=== PATIENT | female | born 1990 | race Two or more races ===

== ENCOUNTER 2021-12-05 14:12 | Outpatient (CLI) | payer SELFPAY ==
[2021-12-05] VITALS (17 sets, daily range): BP systolic 124–174; BP diastolic 83–130
[~2021-12-05] VITALS: Ht 160 cm; Wt 56.0 kg
[2021-12-05] MEDS ORDERED: ONDANSETRON 4MG 2ML VIAL IV ONE (14:40)
[2021-12-05] MEDS ORDERED: LR 1,000 ML IV ONE (14:40)
[2021-12-05 15:16] LABS: HEMATOCRIT 38.6 % (36.0-47.0); MEAN CORPUSCULAR HEMOGLOBIN 29.7 pg (27.0-33.0); MEAN CORPUSCULAR HGB CONC 33.7 g/dl (32.0-36.5); MEAN CORPUSCULAR VOLUME 88.1 fl (80.0-96.0); PLATELET COUNT, AUTOMATED 208 10^3/uL (150-450); RED BLOOD COUNT 4.38 10^6/uL (4.00-5.40); WHITE BLOOD COUNT 6.1 10^3/uL (4.0-10.0)
[2021-12-05] MEDS ORDERED: LABETALOL 100MG/20ML VIAL IV STA ×3 (15:23→16:56)
[2021-12-05 15:43] LABS: ALBUMIN 1.7 GM/DL (3.2-5.2); ALT/SGPT 51 U/L (12-78); BLOOD UREA NITROGEN 11 MG/DL (7-18); CALCIUM LEVEL 7.8 MG/DL (8.5-10.1); CARBON DIOXIDE LEVEL 27 MEQ/L (21-32); CHLORIDE LEVEL 107 MEQ/L (98-107); CREATININE FOR GFR 0.61 MG/DL (0.55-1.30); GLOMERULAR FILTRATION RATE > 60.0 (>60); GLUCOSE, FASTING 72 MG/DL (70-100); LDH LACTATE DEHYDROGENASE 264 U/L (84-246); POTASSIUM SERUM 4.3 MEQ/L (3.5-5.1); SODIUM LEVEL 139 MEQ/L (136-145); TOTAL PROTEIN 5.3 GM/DL (6.4-8.2); URIC ACID 4.8 MG/DL (2.6-6.0)
[2021-12-05 15:46] LABS: BILIRUBIN,TOTAL < 0.1 MG/DL (0.2-1.0)
[2021-12-05] MEDS ORDERED: PRENTAB9 PO (16:11)
[2021-12-05] MEDS ORDERED: BETAMETHASONE SOLUSPAN 6MG/ML 5ML VIAL (J0702 PER 3MG) IM SCH (16:30)
[2021-12-05 16:31] LABS: CREATININE,RANDOM URINE 77.6 MG/DL; TOTAL PROTEIN,RANDOM URINE 642.6 MG/DL (0.0-12.0)
[2021-12-05] MEDS ORDERED: MAGNESIUM SULFATE 4% INJ 20GM/500ML (40MG/ML) As Ordered ONE (16:41)
[2021-12-05] MEDS ORDERED: MAGNESIUM SULFATE 4% INJ 20GM/500ML (40MG/ML) IV ONE (17:00)
[2021-12-05] MEDS ORDERED: MAG Sulf (OBGYN) 20GM/500ML 20,000 MG in IV 1 EA IV SCH (17:30)
== END 2021-12-05 18:45 | disposition short-term general hospital (02) ==
LOC: EDBD 14:12 → M LDO 14:12
PROVIDERS: ATTEND Obstetrics & Gynecology
DX: O21.2 Late vomiting of pregnancy (principal); O41.02X0 Oligohydramnios, second trimester, not applicable or unspecified; Z3A.22 22 weeks gestation of pregnancy; O35.8XX0 Maternal care for other (suspected) fetal abnormality and damage, not applicable or unspecified; O26.892 Other specified pregnancy related conditions, second trimester; R19.7 Diarrhea, unspecified
CPT/HCPCS: 36415; 59025; 76811; 76819; 76820; 76821; 80053; 82247; 82565; 82570; 83615; 84156; 84450; 84460; 84550; 85027; 87635; 96360; 96361; 96372; G0463; J0702; J2405; J3475

== ENCOUNTER 2021-12-17 18:58 | Inpatient (IN) | payer OTHER, SELFPAY ==
[~2021-12-17] VITALS: Ht 157.5 cm; Wt 53.2 kg
[~2021-12-17 18:58] MED LIST: PRENTAB9 PO
[2021-12-17] MEDS ORDERED: IBUP200C25 PO (19:19)
[2021-12-17] MEDS ORDERED: ACET32TAB PO (19:19)
[2021-12-17 20:19] LABS: BASO # 0.1 10^3/uL (0.0-0.2); BASO % 0.2 % (0.0-1.0); HEMATOCRIT 36.2 % (36.0-47.0); HEMOGLOBIN 12.2 g/dl (12.0-15.5); LYMPH # 0.8 10^3/uL (1.5-5.0); LYMPH % 2.3 % (24.0-44.0); MEAN CORPUSCULAR HEMOGLOBIN 30.3 pg (27.0-33.0); MEAN CORPUSCULAR HGB CONC 33.7 g/dl (32.0-36.5); MEAN CORPUSCULAR VOLUME 89.8 fl (80.0-96.0); MONO % 6.7 % (2.0-8.0); NEUTROPHILS % 89.4 % (36.0-66.0); PLATELET COUNT, AUTOMATED 301 10^3/uL (150-450); RED BLOOD COUNT 4.03 10^6/uL (4.00-5.40)
[2021-12-17 20:20] LABS: MONO # 2.2 10^3/uL (0.0-0.8); WHITE BLOOD COUNT 33.5 10^3/uL (4.0-10.0)
[2021-12-17] MEDS ORDERED: NS 1,600 ML in IV 1 EA IV ONE (20:45)
[2021-12-17] MEDS ORDERED: ACETAMINOPHEN TAB 650MG DOSE (2X325MG) PO ONE (20:45)
[2021-12-17 21:29] LABS: ALBUMIN 2.5 GM/DL (3.2-5.2); ALT/SGPT 145 U/L (12-78); BILIRUBIN,TOTAL 0.5 MG/DL (0.2-1.0); BLOOD UREA NITROGEN 9 MG/DL (7-18); CALCIUM LEVEL 8.3 MG/DL (8.5-10.1); CARBON DIOXIDE LEVEL 24 MEQ/L (21-32); CHLORIDE LEVEL 99 MEQ/L (98-107); CREATININE FOR GFR 0.79 MG/DL (0.55-1.30); GLOMERULAR FILTRATION RATE > 60.0 (>60); GLUCOSE, FASTING 117 MG/DL (70-100); POTASSIUM SERUM 4.4 MEQ/L (3.5-5.1); SODIUM LEVEL 130 MEQ/L (136-145)
[2021-12-17 21:30] LABS: TOTAL PROTEIN 6.8 GM/DL (6.4-8.2)
[2021-12-17] MEDS ORDERED: cefTRIAXone SOD 2 GM in D5W MINI-BAG PLUS 50 ML IV ONE (22:05)
[2021-12-17] MEDS ORDERED: ISOVUE-370 76% 100ML VIAL As Ordered ONE (22:12)
[2021-12-18] VITALS (9 sets, daily range): BP systolic 90–140; BP diastolic 55–89
[2021-12-18] MEDS: LR 1,000 ML IV SCH ×3 (00:50→15:13)
[2021-12-18] MEDS ORDERED: [UNRECOGNIZED DRUG - CODE] PO (01:21)
[2021-12-18] MEDS ORDERED: SIME80CH5 PO (01:21)
[2021-12-18] MEDS ORDERED: IBUP1TAB6 PO (01:21)
[2021-12-18] MEDS ORDERED: OXYC-517 PO (01:21)
[2021-12-18] MEDS ORDERED: NIFE30TA50 PO (01:21)
[2021-12-18] MEDS ORDERED: ACET-907 PO (01:21)
[2021-12-18] MEDS ORDERED: HOME MED LIST COMPLETE! XX SCH (01:25)
[2021-12-18] MEDS: ACETAMINOPHEN 500 MG TAB PO SCH ×4 (02:43→20:46)
[2021-12-18] MEDS ORDERED: diphenhydrAMINE 25MG CAP PO ONE ×2 (04:35→22:55)
[2021-12-18] MEDS ORDERED: METOCLOPRAMIDE 10MG TAB PO ONE ×2 (04:35→22:55)
[2021-12-18] MEDS ORDERED: LR 1,000 ML IV ONE (05:15)
[2021-12-18] MEDS: IBUPROFEN 600MG TAB PO SCH ×3 (05:30→17:49)
[2021-12-18 07:54] LABS: HEMATOCRIT 31.7 % (36.0-47.0); HEMOGLOBIN 10.4 g/dl (12.0-15.5); MEAN CORPUSCULAR HEMOGLOBIN 29.6 pg (27.0-33.0); MEAN CORPUSCULAR HGB CONC 32.8 g/dl (32.0-36.5); MEAN CORPUSCULAR VOLUME 90.3 fl (80.0-96.0); PLATELET COUNT, AUTOMATED 288 10^3/uL (150-450); RED BLOOD COUNT 3.51 10^6/uL (4.00-5.40)
[2021-12-18 08:47] LABS: ALBUMIN 1.8 GM/DL (3.2-5.2); ALT/SGPT 95 U/L (12-78); BILIRUBIN,TOTAL 0.3 MG/DL (0.2-1.0); BLOOD UREA NITROGEN 6 MG/DL (7-18); CALCIUM LEVEL 8.2 MG/DL (8.5-10.1); CARBON DIOXIDE LEVEL 20 MEQ/L (21-32); CHLORIDE LEVEL 107 MEQ/L (98-107); CREATININE FOR GFR 0.61 MG/DL (0.55-1.30); GLOMERULAR FILTRATION RATE > 60.0 (>60); GLUCOSE, FASTING 86 MG/DL (70-100); POTASSIUM SERUM 4.2 MEQ/L (3.5-5.1); SODIUM LEVEL 136 MEQ/L (136-145); TOTAL PROTEIN 5.2 GM/DL (6.4-8.2)
[2021-12-18] MEDS: NIFEdipine 30 MG XL TAB PO SCH (09:00)
[2021-12-18] MEDS ORDERED: ONDANSETRON 4MG 2ML VIAL IV PRN (18:10)
[2021-12-18] MEDS ORDERED: cefTRIAXone SOD 1 GM in D5W MINI-BAG PLUS 50 ML IV SCH (20:45)
[2021-12-19] MEDS: IBUPROFEN 600MG TAB PO SCH ×4 (00:25→16:47)
[2021-12-19] MEDS: ACETAMINOPHEN 500 MG TAB PO SCH (02:53)
[2021-12-19 04:00] VITALS: BP 121/72
[2021-12-19] MEDS: PERCOCET 5MG/325MG TAB PO PRN ×2 (04:23→11:47)
[2021-12-19] MEDS: LR 1,000 ML IV SCH ×3 (06:03→20:52)
[2021-12-19 07:33] LABS: BASO # 0.1 10^3/uL (0.0-0.2); BASO % 0.2 % (0.0-1.0); EOS # 0.1 10^3/uL (0.0-0.5); EOS % 0.4 % (0.0-3.0); HEMATOCRIT 32.9 % (36.0-47.0); HEMOGLOBIN 11.1 g/dl (12.0-15.5); LYMPH # 1.3 10^3/uL (1.5-5.0); LYMPH % 5.8 % (24.0-44.0); MEAN CORPUSCULAR HEMOGLOBIN 30.1 pg (27.0-33.0); MEAN CORPUSCULAR HGB CONC 33.7 g/dl (32.0-36.5); MEAN CORPUSCULAR VOLUME 89.2 fl (80.0-96.0); MONO # 1.5 10^3/uL (0.0-0.8); MONO % 6.7 % (2.0-8.0); NEUTROPHILS # 18.8 10^3/uL (1.5-8.5); NEUTROPHILS % 85.4 % (36.0-66.0); PLATELET COUNT, AUTOMATED 337 10^3/uL (150-450); RED BLOOD COUNT 3.69 10^6/uL (4.00-5.40); WHITE BLOOD COUNT 22.1 10^3/uL (4.0-10.0)
[2021-12-19 08:00] VITALS: BP 98/70
[2021-12-19] MEDS: NIFEdipine 30 MG XL TAB PO SCH (08:19)
[2021-12-19] MEDS ORDERED: diphenhydrAMINE 50MG/ML VIAL (J1200) IV SCH (08:30)
[2021-12-19] MEDS: MEROPENEM INJ 1 GM in IV 1 EA IV SCH ×2 (09:16→16:47)
[2021-12-19 11:53] VITALS: BP 117/77
[2021-12-19] MEDS: diphenhydrAMINE 50MG/ML VIAL (J1200) IV SCH (16:43)
[2021-12-19 16:51] VITALS: BP 134/79
[2021-12-19] MEDS: ACETAMINOPHEN TAB 650MG DOSE (2X325MG) PO PRN ×2 (17:57→22:02)
[2021-12-19] MEDS: oxyCODONE 5MG TAB PO PRN (18:07)
[2021-12-19] MEDS ORDERED: oxyCODONE 5MG TAB PO ONE (19:10)
[2021-12-19] MEDS ORDERED: oxyCODONE 5MG TAB PO PRN (19:10)
[2021-12-19 20:03] VITALS: BP 124/81
[2021-12-19] MEDS: ENOXAPARIN 40MG/0.4ML SYRINGE (J1650 PER 10MG) SC SCH (20:53)
[2021-12-20] VITALS (7 sets, daily range): BP systolic 112–152; BP diastolic 76–85
[2021-12-20] MEDS: IBUPROFEN 600MG TAB PO SCH ×5 (00:15→23:53)
[2021-12-20] MEDS: diphenhydrAMINE 50MG/ML VIAL (J1200) IV SCH ×3 (00:15→16:15)
[2021-12-20] MEDS: MEROPENEM INJ 1 GM in IV 1 EA IV SCH ×3 (01:10→16:16)
[2021-12-20] MEDS: ACETAMINOPHEN TAB 650MG DOSE (2X325MG) PO PRN ×4 (02:28→20:28)
[2021-12-20] MEDS: LR 1,000 ML IV SCH ×3 (04:30→16:16)
[2021-12-20] MEDS: NIFEdipine 30 MG XL TAB PO SCH (08:17)
[2021-12-20 09:07] LABS: BASO % 0.5 % (0.0-1.0); EOS # 0.1 10^3/uL (0.0-0.5); EOS % 1.3 % (0.0-3.0); HEMATOCRIT 30.5 % (36.0-47.0); HEMOGLOBIN 10.4 g/dl (12.0-15.5); LYMPH % 11.6 % (24.0-44.0); MEAN CORPUSCULAR HEMOGLOBIN 29.9 pg (27.0-33.0); MEAN CORPUSCULAR HGB CONC 34.1 g/dl (32.0-36.5); MEAN CORPUSCULAR VOLUME 87.6 fl (80.0-96.0); MONO # 0.8 10^3/uL (0.0-0.8); MONO % 8.9 % (2.0-8.0); NEUTROPHILS # 6.7 10^3/uL (1.5-8.5); NEUTROPHILS % 76.9 % (36.0-66.0); PLATELET COUNT, AUTOMATED 345 10^3/uL (150-450); RED BLOOD COUNT 3.48 10^6/uL (4.00-5.40); WHITE BLOOD COUNT 8.7 10^3/uL (4.0-10.0)
[2021-12-20] MEDS: ENOXAPARIN 40MG/0.4ML SYRINGE (J1650 PER 10MG) SC SCH (20:29)
[2021-12-20] MEDS: oxyCODONE 5MG TAB PO PRN (22:49)
[2021-12-21] MEDS: diphenhydrAMINE 50MG/ML VIAL (J1200) IV SCH ×3 (00:45→16:04)
[2021-12-21] MEDS: ACETAMINOPHEN TAB 650MG DOSE (2X325MG) PO PRN ×3 (00:46→17:21)
[2021-12-21] MEDS ORDERED: oxyCODONE 5MG TAB PO ONE (01:15)
[2021-12-21] MEDS: MEROPENEM INJ 1 GM in IV 1 EA IV SCH ×3 (01:24→17:04)
[2021-12-21] MEDS: LR 1,000 ML IV SCH (01:28)
[2021-12-21 04:30] VITALS: BP 122/79
[2021-12-21] MEDS: IBUPROFEN 600MG TAB PO SCH ×4 (06:12→22:34)
[2021-12-21 06:30] LABS: BASO % 0.7 % (0.0-1.0); EOS # 0.1 10^3/uL (0.0-0.5); EOS % 2.2 % (0.0-3.0); HEMATOCRIT 29.7 % (36.0-47.0); HEMOGLOBIN 10.1 g/dl (12.0-15.5); LYMPH # 1.2 10^3/uL (1.5-5.0); LYMPH % 20.5 % (24.0-44.0); MEAN CORPUSCULAR HEMOGLOBIN 29.6 pg (27.0-33.0); MEAN CORPUSCULAR VOLUME 87.1 fl (80.0-96.0); MONO # 0.7 10^3/uL (0.0-0.8); MONO % 12.4 % (2.0-8.0); NEUTROPHILS # 3.7 10^3/uL (1.5-8.5); NEUTROPHILS % 63.5 % (36.0-66.0); PLATELET COUNT, AUTOMATED 414 10^3/uL (150-450); RED BLOOD COUNT 3.41 10^6/uL (4.00-5.40); WHITE BLOOD COUNT 5.8 10^3/uL (4.0-10.0)
[2021-12-21] MEDS ORDERED: MIRALAX *UNIT DOSE* 17GM PACKET PO PRN (07:45)
[2021-12-21] MEDS ORDERED: SENNA 8.6 MG TAB (SENOKOT) PO PRN (07:45)
[2021-12-21 08:00] VITALS: BP 98/69
[2021-12-21] MEDS: NIFEdipine 30 MG XL TAB PO SCH (08:40)
[2021-12-21] MEDS: DOCUSATE SODIUM 100MG CAPSULE PO SCH ×2 (08:44→20:04)
[2021-12-21 12:00] VITALS: BP 132/94
[2021-12-21 16:00] VITALS: BP 129/90
[2021-12-21] MEDS: ENOXAPARIN 40MG/0.4ML SYRINGE (J1650 PER 10MG) SC SCH (20:04)
[2021-12-22] MEDS: diphenhydrAMINE 50MG/ML VIAL (J1200) IV SCH ×3 (00:32→16:35)
[2021-12-22] MEDS: MEROPENEM INJ 1 GM in IV 1 EA IV SCH ×3 (01:05→17:17)
[2021-12-22 04:00] VITALS: BP 152/86
[2021-12-22] MEDS: IBUPROFEN 600MG TAB PO SCH ×3 (05:06→17:19)
[2021-12-22 06:22] LABS: BASO % 0.6 % (0.0-1.0); EOS # 0.1 10^3/uL (0.0-0.5); EOS % 2.5 % (0.0-3.0); HEMATOCRIT 31.1 % (36.0-47.0); HEMOGLOBIN 10.7 g/dl (12.0-15.5); LYMPH # 1.5 10^3/uL (1.5-5.0); LYMPH % 29.5 % (24.0-44.0); MEAN CORPUSCULAR HEMOGLOBIN 29.6 pg (27.0-33.0); MEAN CORPUSCULAR HGB CONC 34.4 g/dl (32.0-36.5); MEAN CORPUSCULAR VOLUME 86.1 fl (80.0-96.0); MONO # 0.9 10^3/uL (0.0-0.8); MONO % 17.5 % (2.0-8.0); NEUTROPHILS # 2.5 10^3/uL (1.5-8.5); NEUTROPHILS % 48.9 % (36.0-66.0); PLATELET COUNT, AUTOMATED 440 10^3/uL (150-450); RED BLOOD COUNT 3.61 10^6/uL (4.00-5.40); WHITE BLOOD COUNT 5.2 10^3/uL (4.0-10.0)
[2021-12-22 08:00] VITALS: BP 130/86
[2021-12-22] MEDS: PRENATAL VITAMINS CHEWABLE TABLET PO SCH (08:44)
[2021-12-22] MEDS: DOCUSATE SODIUM 100MG CAPSULE PO SCH ×2 (08:45→19:37)
[2021-12-22] MEDS: NIFEdipine 30 MG XL TAB PO SCH (08:46)
[2021-12-22 12:00] VITALS: BP 136/103
[2021-12-22 12:15] VITALS: BP 135/90
[2021-12-22 16:00] VITALS: BP 133/90
[2021-12-22 20:00] VITALS: BP 124/82
[2021-12-22] MEDS: ENOXAPARIN 40MG/0.4ML SYRINGE (J1650 PER 10MG) SC SCH (20:10)
[2021-12-23] VITALS: BP 125/81
[2021-12-23] MEDS: ACETAMINOPHEN TAB 650MG DOSE (2X325MG) PO PRN ×2 (01:50→15:40)
[2021-12-23] MEDS: IBUPROFEN 600MG TAB PO PRN ×2 (02:53→16:31)
[2021-12-23 07:02] LABS: BASO % 0.5 % (0.0-1.0); EOS # 0.1 10^3/uL (0.0-0.5); EOS % 2.1 % (0.0-3.0); HEMATOCRIT 31.9 % (36.0-47.0); HEMOGLOBIN 10.5 g/dl (12.0-15.5); LYMPH # 1.5 10^3/uL (1.5-5.0); LYMPH % 24.2 % (24.0-44.0); MEAN CORPUSCULAR HGB CONC 32.9 g/dl (32.0-36.5); MEAN CORPUSCULAR VOLUME 88.1 fl (80.0-96.0); MONO # 0.7 10^3/uL (0.0-0.8); MONO % 11.3 % (2.0-8.0); NEUTROPHILS # 3.8 10^3/uL (1.5-8.5); NEUTROPHILS % 61.1 % (36.0-66.0); PLATELET COUNT, AUTOMATED 503 10^3/uL (150-450); RED BLOOD COUNT 3.62 10^6/uL (4.00-5.40); WHITE BLOOD COUNT 6.2 10^3/uL (4.0-10.0)
[2021-12-23 07:34] LABS: ALBUMIN 1.8 GM/DL (3.2-5.2); ALT/SGPT 44 U/L (12-78); BILIRUBIN,TOTAL 0.2 MG/DL (0.2-1.0); BLOOD UREA NITROGEN 7 MG/DL (7-18); CALCIUM LEVEL 8.2 MG/DL (8.5-10.1); CARBON DIOXIDE LEVEL 27 MEQ/L (21-32); CHLORIDE LEVEL 106 MEQ/L (98-107); CREATININE FOR GFR 0.52 MG/DL (0.55-1.30); GLOMERULAR FILTRATION RATE > 60.0 (>60); GLUCOSE, FASTING 89 MG/DL (70-100); POTASSIUM SERUM 4.6 MEQ/L (3.5-5.1); SODIUM LEVEL 138 MEQ/L (136-145); TOTAL PROTEIN 5.5 GM/DL (6.4-8.2)
[2021-12-23] MEDS ORDERED: ISOVUE-370 76% 100ML VIAL As Ordered ONE (07:53)
[2021-12-23 08:00] VITALS: BP 122/82
[2021-12-23] MEDS: ERTAPENEM SODIUM 1 GM in NS MINI-BAG PLUS 50 ML IV SCH (09:13)
[2021-12-23 09:16] VITALS: BP 122/82
[2021-12-23] MEDS: PRENATAL VITAMINS CHEWABLE TABLET PO SCH (09:28)
[2021-12-23] MEDS: NIFEdipine 30 MG XL TAB PO SCH (09:31)
[2021-12-23 12:00] VITALS: BP 134/76
[2021-12-23] MEDS ORDERED: traMADol 50 MG TAB PO ONE (13:00)
[2021-12-23 16:00] VITALS: BP 124/93
[2021-12-23] MEDS: ENOXAPARIN 40MG/0.4ML SYRINGE (J1650 PER 10MG) SC SCH (20:06)
[2021-12-23 20:22] VITALS: BP 131/82
[2021-12-24] VITALS (7 sets, daily range): BP systolic 117–141; BP diastolic 79–95
[2021-12-24] MEDS: IBUPROFEN 600MG TAB PO PRN ×2 (04:14→21:08)
[2021-12-24 05:50] LABS: HEMATOCRIT 31.4 % (36.0-47.0); HEMOGLOBIN 10.5 g/dl (12.0-15.5); MEAN CORPUSCULAR HEMOGLOBIN 29.5 pg (27.0-33.0); MEAN CORPUSCULAR HGB CONC 33.4 g/dl (32.0-36.5); MEAN CORPUSCULAR VOLUME 88.2 fl (80.0-96.0); PLATELET COUNT, AUTOMATED 526 10^3/uL (150-450); RED BLOOD COUNT 3.56 10^6/uL (4.00-5.40); WHITE BLOOD COUNT 8.4 10^3/uL (4.0-10.0)
[2021-12-24 06:21] LABS: ALT/SGPT 41 U/L (12-78); BILIRUBIN,TOTAL 0.2 MG/DL (0.2-1.0); BLOOD UREA NITROGEN 6 MG/DL (7-18); CALCIUM LEVEL 8.4 MG/DL (8.5-10.1); CARBON DIOXIDE LEVEL 23 MEQ/L (21-32); CHLORIDE LEVEL 104 MEQ/L (98-107); CREATININE FOR GFR 0.55 MG/DL (0.55-1.30); GLOMERULAR FILTRATION RATE > 60.0 (>60); GLUCOSE, FASTING 120 MG/DL (70-100); POTASSIUM SERUM 4.2 MEQ/L (3.5-5.1); SODIUM LEVEL 135 MEQ/L (136-145); TOTAL PROTEIN 6.2 GM/DL (6.4-8.2)
[2021-12-24] MEDS: ERTAPENEM SODIUM 1 GM in NS MINI-BAG PLUS 50 ML IV SCH (08:17)
[2021-12-24] MEDS: NIFEdipine 30 MG XL TAB PO SCH (09:00)
[2021-12-24] MEDS: PRENATAL VITAMINS CHEWABLE TABLET PO SCH (09:16)
[2021-12-24] MEDS: ACETAMINOPHEN TAB 650MG DOSE (2X325MG) PO PRN (16:08)
[2021-12-24 16:57] LABS: HEPATITIS B SURFACE ANTIGEN NEGATIVE (NEGATIVE)
[2021-12-24] MEDS: ENOXAPARIN 40MG/0.4ML SYRINGE (J1650 PER 10MG) SC SCH (20:52)
[2021-12-25 00:24] VITALS: BP 119/85
[2021-12-25 04:00] VITALS: BP 120/81
[2021-12-25] MEDS: IBUPROFEN 600MG TAB PO PRN (05:13)
[2021-12-25 08:00] VITALS: BP 119/74
[2021-12-25] MEDS: NIFEdipine 30 MG XL TAB PO SCH (08:21)
[2021-12-25] MEDS ORDERED: LIDOCAINE 1% MDV 20ML VIAL As Ordered ONE (08:23)
[2021-12-25] MEDS: ERTAPENEM SODIUM 1 GM in NS MINI-BAG PLUS 50 ML IV SCH (09:18)
[2021-12-25] MEDS: PRENATAL VITAMINS CHEWABLE TABLET PO SCH (09:18)
[2021-12-25 09:21] VITALS: BP 120/86
[2021-12-25] MEDS ORDERED: NIFE1TAB52 PO (12:35)
[2021-12-25] MEDS ORDERED: IBUP-1022 PO (12:35)
[2021-12-25 13:14] VITALS: BP 122/86
[2021-12-25 16:00] VITALS: BP 119/79
== END 2021-12-25 17:15 | disposition home or self-care (01) | DRG 776 ==
LOC: M ED 18:58 → EEVIPCON 12-18 00:50 → M ED INP 12-18 00:50 → ENRESERV 12-18 01:25 → M PED 12-18 01:50
PROVIDERS: ADMIT Obstetrics & Gynecology; ATTEND Obstetrics & Gynecology
PROC: 02HV33Z Insertion of Infusion Device into Superior Vena Cava, Percutaneous Approach (ICD-10-PCS; principal; 2021-12-25 16:00)
DX: O86.21 Infection of kidney following delivery (principal); B96.20 Unspecified Escherichia coli [E. coli] as the cause of diseases classified elsewhere; O34.219 Maternal care for unspecified type scar from previous cesarean delivery; Z79.899 Other long term (current) drug therapy; Z20.822 Contact with and (suspected) exposure to COVID-19

== ENCOUNTER → 2021-12-25 | Outpatient (CLI) | payer OTHER ==
[~2021-12-25] MED LIST changes: +ACET-907 PO; +ACET32TAB PO; +IBUP-1022 PO; +IBUP1TAB6 PO; +IBUP200C25 PO; +NIFE1TAB52 PO; +NIFE30TA50 PO; +OXYC-517 PO; +SIME80CH5 PO; +[UNRECOGNIZED DRUG - CODE] PO
== END ==
LOC: M INFU 17:19
PROVIDERS: ATTEND Obstetrics & Gynecology
DX: Z53.9 Procedure and treatment not carried out, unspecified reason (principal)

== ENCOUNTER 2021-12-26 12:49 | Outpatient (CLI) | payer OTHER ==
[~2021-12-26] VITALS: Ht 157.5 cm; Wt 54.5 kg
[2021-12-26 13:02] VITALS: BP 116/77
[2021-12-26] MEDS ORDERED: ERTAPENEM SODIUM 1 GM in NS MINI-BAG PLUS 50 ML IV ONE (14:00)
[2021-12-26] MEDS ORDERED: SODIUM CHLORIDE 0.9% INJ 10 ML SYR IV PRN (14:15)
[2021-12-26 15:22] VITALS: BP 108/81
== END 2021-12-26 15:27 | disposition home or self-care (01) ==
LOC: M OPCLIPED 12:49 → M PED 12:56 → M OPCLIPED 15:27 → EDSTATUS 17:17
PROVIDERS: ATTEND Obstetrics & Gynecology
DX: N10 Acute pyelonephritis (principal); B96.20 Unspecified Escherichia coli [E. coli] as the cause of diseases classified elsewhere; Z88.0 Allergy status to penicillin
CPT/HCPCS: 96365; J1335; J1642

== ENCOUNTER → 2022-01-10 | Outpatient (CLI) | payer OTHER ==
[2022-01-10 14:18] LABS: BASO % 0.5 % (0.0-1.0); EOS # 0.2 10^3/uL (0.0-0.5); EOS % 3.5 % (0.0-3.0); HEMATOCRIT 37.6 % (36.0-47.0); HEMOGLOBIN 12.1 g/dl (12.0-15.5); LYMPH # 2.2 10^3/uL (1.5-5.0); LYMPH % 38.8 % (24.0-44.0); MEAN CORPUSCULAR HEMOGLOBIN 28.9 pg (27.0-33.0); MEAN CORPUSCULAR HGB CONC 32.2 g/dl (32.0-36.5); MEAN CORPUSCULAR VOLUME 89.7 fl (80.0-96.0); MONO # 0.4 10^3/uL (0.0-0.8); MONO % 7.4 % (2.0-8.0); NEUTROPHILS # 2.8 10^3/uL (1.5-8.5); NEUTROPHILS % 49.6 % (36.0-66.0); PLATELET COUNT, AUTOMATED 330 10^3/uL (150-450); RED BLOOD COUNT 4.19 10^6/uL (4.00-5.40); WHITE BLOOD COUNT 5.7 10^3/uL (4.0-10.0)
[2022-01-10 14:57] LABS: ALT/SGPT 31 U/L (12-78); BILIRUBIN,TOTAL 0.5 MG/DL (0.2-1.0); BLOOD UREA NITROGEN 5 MG/DL (7-18); C REACTIVE PROTEIN QUANTITATIV 1.28 MG/DL (0.00-0.30); CALCIUM LEVEL 8.6 MG/DL (8.5-10.1); CARBON DIOXIDE LEVEL 28 MEQ/L (21-32); CHLORIDE LEVEL 103 MEQ/L (98-107); CREATININE FOR GFR 0.58 MG/DL (0.55-1.30); GLOMERULAR FILTRATION RATE > 60.0 (>60); GLUCOSE, FASTING 91 MG/DL (70-100); SODIUM LEVEL 134 MEQ/L (136-145); TOTAL PROTEIN 7.5 GM/DL (6.4-8.2)
== END ==
LOC: M LAB 13:58
PROVIDERS: ATTEND Internal Medicine Infectious Disease
DX: N12 Tubulo-interstitial nephritis, not specified as acute or chronic (principal)